=== PATIENT | female | born 1955 | race Caucasian/White ===

== ENCOUNTER 2023-09-30 09:47 | Outpatient (AMB) | payer MEDICARE, SELFPAY ==
--- NOTE | 2023-09-30 10:01 | MHC.OFFVIS ---
Intake Vital Signs 09/30/23 10:09 Height 5 ft 2 in Weight 135 lb BMI 24.7 BP 122/88 Blood Pressure Location Rt brachial Position Sitting Respiration 16 Pulse 78 Pulse Source Pulse Oximeter Pulse Oximetry (%) 97 Oxygen Delivery Method Room Air Intake Visit Reasons: dizziness Intake Note: Pt presents for new pt evaluation for dizziness and headaches. Pt describes episodes where she feels lightheaded, dizzy, muscles become either rigid or rubbery and weak and has a sudden onset of head pressure. [employer] Hostess Required: No Allergies Sulfa (Sulfonamide Antibiotics) Allergy (Mild, Verified 09/30/23 10:08) Itching HPI HPI Comments History of Present Illness Details 68 y/o female patient presents for new in-person visit for evaluation of head pressure, dizziness and muscle weakness. Pt reports strong wave of dizziness and muscle weakness along with head pressure. The symptoms started around May, and it progressed, can happen anytime without warning, or triggers. It last couple of minutes, but it is intense and then she feels like hangover and not feeling well for the rest of the day. Pt sates that she has hx of vertigo, and this dizziness is not vertigo, it is associated with upper body muscle tightness and weakness. She had ear problem, she always feels something in her ear. She was checked by ENT recently and was told that her ear is ok. However, she thinks that her hearing decreased and muffled. She has hx of panic attack, with heart racing and difficulty breathing when she has panic attack. And this symptoms are not the panic attack, she does not have the alli attack symptoms. She does not sleep well due to body pain, has fibromyalgia. Pt reports she is extremely anemic and having vitamin B [address] of brain result was normal. [facility] Surgical History (Updated 09/30/23 @ 10:15 by Ronda House CMA) H/O bilateral oophorectomy H/O tubal ligation H/O total hysterectomy Family History (Updated 09/30/23 @ 10:17 by Ronda House CMA) Mother No problems noted. Sister No problems noted. Social History (Updated 09/30/23 @ 10:09 by Ronda House CMA) Alcohol intake: never Patient Tobacco Use Status: Never used Tobacco Review of Systems Const All systems reviewed & are unremarkable except as noted in HPI and below Physical Exam Vital Signs: Last Vital Signs Pulse 78 09/30/23 10:09 Resp 16 09/30/23 10:09 BP 122/88 09/30/23 10:09 Pulse Ox 97 09/30/23 10:09 Oxygen Delivery Method Room Air 09/30/23 10:09 BMI result Body Mass Index 24.7 Const General: cooperative Nutritional Appearance: average body habitus Orientation/consciousness: patient oriented x3 Neck Neck: Yes full ROM and Yes supple Resp Effort & Inspection: normal respiratory effort and able to speak in complete sentences Neuro General: patient oriented x3, gait normal, moves all extremities and CN's II-XI intact bilaterally Cognition (Neuro): normal cognition Gait exam (Neuro): Normal gait present Motor exam (neuro): 5/5 motor strength present throughout, Pronator motor function not present and no tremor noted Deep tendon reflexes (DTR's): Right brachioradialis reflex intensity grade: 2+, Left brachioradialis reflex intensity grade: 2+, Right patellar reflex intensity grade: 2+ and Left patellar reflex intensity grade: 2+ Coordination: [id number] test normal Psych Appearance: grossly normal Mental Status: mental status grossly normal Speech and movement: Normal speech and movement present Affect: Anxious affect present Attitude: cooperative Assessment & Plan Assessment & Plan (1) Acute muscle weakness: Code(s): M62.81 - Muscle weakness (generalized) (2) Dizziness: Code(s): R42 - Dizziness and giddiness (3) Headache: Code(s): R51.9 - Headache, unspecified Plan Advised patient to undergo brain MRI to assess increased headache frequency and intensity. Also advised patient to undergo EEG for acute muscle weakness associated with dizziness and headache. Advised patient to monitor the headache frequency and intensity, triggers and alleviating factors. It can be vestibular migraine. Orders: Orders MR head/brain wo con 09/30/23 R51.9 - Headache, unspecified EEG awake and asleep 09/30/23 M62.81 - Muscle weakness (generalized) Coding Level of Care Code New Pt Level 4 (46548) Diagnoses Acute muscle weakness M62.81 Dizziness R42 Headache R51.9
[2023-09-30 10:09] VITALS: BP 122/88; PULSE 78; RESP 16; O2SAT 97; BMI 24.7
== END 2023-09-30 10:57 | disposition home or self-care (01) ==
PROVIDERS: PCP Internal Medicine; Visit Provider Nurse Practitioner Family
DX: M62.81 Muscle weakness (generalized) (principal); R42 Dizziness and giddiness; R51.9 Headache, unspecified
CPT/HCPCS: 99204

== ENCOUNTER → 2023-09-30 09:47 | Outpatient (BNVA) | payer MEDICARE, SELFPAY | PROVIDERS: PCP Internal Medicine; Visit Provider Nurse Practitioner Family | DX: M62.81 Muscle weakness (generalized) (principal); R42 Dizziness and giddiness; R51.9 Headache, unspecified | CPT/HCPCS: 99202 ==